=== PATIENT | female | born 1975 | race Caucasian/White ===

== ENCOUNTER → 2021-09-21 10:26 | Outpatient (CLI) | payer OTHER, SELFPAY ==
--- NOTE | ~2021-09-21 | DEXA_ITS ---
Bone Density Report Name: Saima eNlson Age: 46 Sex: Female Ethnicity: White Date of : 1975 Indication: history of glucocorticoids; prior fracture; Referring Provider: Linus, Jun Gray Study: Bone densitometry was performed. Exam Date: September 21, 2021 Accession number: [id number] Bone Density: Region BMD T-score Z-score Classification AP Spine (L1-L4) 0.981 -0.6 -0.1 Normal Femoral Neck (Left) 0.658 -1.7 -1.2 Osteopenia Total Hip (Left) 0.857 -0.7 -0.4 Normal Femoral Neck (Right) 0.671 -1.6 -1.1 Osteopenia Total Hip (Right) 0.906 -0.3 0.0 Normal Total Hip Mean 0.882 -0.5 -0.2 Normal World Health Organization criteria for BMD impression classify patients as: Normal (T-score at or above -1.0), Osteopenia (T-score between -1.0 and -2.5), or Osteoporosis (T-score at or below -2.5). 10-year Fracture Risk: FRAX not reported because: Premenopausal woman Clinical Information Provided by Patient: Has had a low trauma fracture Has taken Glucocorticoids Patient maximum height was 61 Does not regularly consume dairy products Drinks caffeinated beverages Onset of menses at age 13 Premenopausal Number of children 2 Impression: The patient's bone mass is within expected range for age, gender and ethnicity. The patient has risk factors, including: previous fracture, history of glucocorticoid therapy. Discussion: BONE DENSITY IS WITHIN EXPECTED LIMITS FOR AGE, SEX AND RACE. Bone density is within expected limits for age, sex and race at all sites measured. The patient should follow a healthful lifestyle (good nutrition with adequate calcium and vitamin D, and appropriate weight-bearing exercise). Follow-Up: Consider repeating this study in 2 to 3 years to reassess this patient's status, or sooner if there is some new clinical indication. Reported by: ALEJANDRA on 09/21/2021 11:07:00 AM. Reviewed, dictated and finalized at location [facility]
== END ==
PROVIDERS: Visit Provider Internal Medicine
DX: M32.9 Systemic lupus erythematosus, unspecified (principal); M35.01 Sjogren syndrome with keratoconjunctivitis; Z79.899 Other long term (current) drug therapy; M85.89 Other specified disorders of bone density and structure, multiple sites
CPT/HCPCS: 77080

== ENCOUNTER → 2022-05-09 14:00 | Outpatient (CLI) | payer OTHER, SELFPAY ==
--- NOTE | ~2022-05-09 | XR_ITS ---
EXAMINATION: XR hip LT min 2V DATE: 05/09/2022 14:37 INDICATION: Left hip pain. TECHNIQUE: 2 views of left hip were obtained. COMPARISON: None. FINDINGS: Bone alignment is normal. No fracture. There is mild left hip osteoarthritis characterized by a tiny osteophyte. No joint space narrowing. IMPRESSION: 1. Mild left hip osteoarthritis. Reviewed, dictated and finalized at location A.
== END ==
PROVIDERS: PCP Family Medicine; Visit Provider Internal Medicine
DX: M16.12 Unilateral primary osteoarthritis, left hip (principal); M32.9 Systemic lupus erythematosus, unspecified; M85.852 Other specified disorders of bone density and structure, left thigh
CPT/HCPCS: 73502

== ENCOUNTER → 2022-11-13 10:06 | Outpatient (CLI) | payer OTHER, SELFPAY ==
--- NOTE | ~2022-11-13 | MR_ITS ---
MRI of the left hip Clinical history: Pain Technique: Coronal T1-weighted, T2-weighted, and proton-density fat-sat images, and axial T1-weighted and proton-density fat-sat images were acquired through the pelvis. Coronal T2-weighted images and c oronal, axial, and sagittal proton-density fat-sat images were acquired through the left hip. Findings: There is no fracture, avascular necrosis, transient osteoporosis of either hip. Bone marrow signals of the proximal femora and visualized pelvic bones are unremarkable. Mild hip and SI joints are preserved. No significant degenerative or erosive change. No joint effusion. No left acetabular l abral tear identified. Visualized musculature about the pelvis and left hip is unremarkable. No muscle atrophy or edema. Vis ualized tendons are intact. No bursa, other fluid collection, or soft tissue mass identified. IMPRESSION: Unremarkable exam. Reviewed, dictated and finalized at [facility]. LABORATORY ASSISTANT IMPRESSION: Unremarkable exam.
--- NOTE | ~2022-11-13 | MR_ITS ---
MRI of the lumbar spine Clinical History: Back pain, sciatica Technique: Axial T2-weighted images, and sagittal T1-weighted, T2-weighted, and T2 fat-sat images wer e acquired. Findings: There is no fracture or subluxation of the lumbar spine. Vertebral bodies maintain normal h eight and alignment. No focal bone marrow signal abnormality identified. At L1-L2, L2-L3, L3-L4, L4-L5, there is no significant disc bulge or herniation. No spinal canal sten osis or neural foraminal narrowing at these levels. At L5-S1, there is minimal disc desiccation with small annular fissure. No spinal canal stenosis or d efinite neural foraminal narrowing. Paravertebral soft tissues are unremarkable. Impression: Tiny annular fissure at L5-S1, otherwise unremarkable exam. Reviewed, dictated and finalized at [facility]. NT CHEMIST Impression: Tiny annular fissure at L5-S1, otherwise unremarkable exam.
== END ==
PROVIDERS: PCP Family Medicine; Visit Provider Family Medicine
DX: M54.50 Low back pain, unspecified (principal); G89.29 Other chronic pain; M89.9 Disorder of bone, unspecified
CPT/HCPCS: 72148; 73721